=== PATIENT | female | born 1990 | race African-American/Black ===

== ENCOUNTER 2019-01-23 09:57 | Outpatient (CLI) | payer OTHER ==
[2019-01-23 11:29] VITALS: BP 137/97
--- NOTE | 2019-01-23 11:29 | SLEEP CARE CONSULTATION ---
Information from patient questionnaire entered by Mine Barbosa. I have reviewed and concur with the information entered by Mine Barbosa. This document represents the service I personally performed and the decisions made by me, Octavio Simmons MD, [facility]. History of Present Illness Reason for Visit: New patient Chief Complaint: reports: Other (always tired) Duration of Symptoms: 4-6 years Usual bedtime: 2483-2968 Time it takes to fall asleep: 5 minutes Snores at night: Yes (lightly per ) Observed to quit breathing while asleep: Yes Sleeps alone due to snoring: No Number of times waking at night: 5-6 Reasons for waking at night: reports: Gasping for air, Other (noises) Toss, Turn, or Twitch while sleeping: Yes Recalls having dreams: Yes Usually gets out of bed at: [id number] Feels refreshed in the morning: No Morning headache: No Sleepy or fatigued during the day: Yes Ever fallen asleep while driving: Yes (only while ) Takes day naps: No Dreams during day naps: Yes Prior sleep studies: No Additional HPI information: I had the pleasure of seeing Ms. Pederson today regarding the possibility of her having a sleep disorder. As you know, she is a 28 year old lady who complains of persistent fatigue for4 6 years. The patient tells me that she normally goes to bed around 8:30 - 10 pm, and it takes her approximately 5 - 15 minutes to fall asleep. She has been told that she snores lightly. She has also been observed to stop breathing in her sleep. Her spouse can still sleep in the same bed. He uses a CPAP. She can recall waking up on the average of 5 - 6 times during the night. Most of the time she wakes up because of noises and gasping for air. There is a lot of tossing and turning in her sleep. No somniloquy (sleep talking) or somnambulism (sleep walking). Generally she can recall having dreams. In the morning she usually gets up out of the bed around 4:30 - 5 a.m. not feeling refreshed nor rested. She usually does not have a morning headache. During the day she complains of feeling sleepy and fatigued. Her score on [place] Sleepiness Scale is 10 out of 24. She has fallen asleep while driving and has gone out of the ervin. She usually does not take naps during the day. Upon falling asleep during the day she reports having dreams. She has never had sleep paralysis, experienced cataplexy or symptoms of restless leg syndrome. She reports having impaired concentration during the day. 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 Patient is and lives in [place]. Have you smoked in the past 12 months: Yes (less than 1 pack) Years of smokin Quit date: cut back 09/2018 Alcohol use: Yes Alcohol amount and frequency: 2 drinks/week Caffeine use: Yes Caffeine amount and frequency: 1 cup, 3-4 times/week Allergies and Home Medications Drug allergies reviewed: Yes Home medication list reviewed: Yes Allergy and home medication list: Meds: buspirone Review of Systems Weight gain over past 5 years: 15 Cardiovascular: reports: palpitations Gastrointestinal: reports: heartburn, abdominal pain Neurological: denies: headaches, seizure, head trauma, disorientation, speech dysfunction, gait or balance problems, fainting or unconsciousness, other Psychiatric: reports: anxiety Ear/Nose/Throat: reports: wisdom teeth removed Endocrine: reports: unexplained weakness Musculoskeletal: reports: back pain Immunologic: denies: sneezing, rash, itching, allergies to food or environment, other Physical Exam Vital signs obtained and entered by: Dr. Simmons Blood Pressure: 137/97 Cuff size: regular Heart Rate: 71 O2 Saturation: 99 Height: 5 ft 6 in Weight: 155 lb Body Mass Index: 25.0 BMI Classification: Overweight Neck circumference: 14.5 Mood/affect: normal HEENT: No craniofacial malformation Nostrils: patent to airflow Turbinates: normal Septum: midline Mouth and throat: narrow oropharynx Soft palate: long Hard palate: normal Uvula: normal Uvula visualization: 50% Mallampati Class II Tongue: normal in size Tonsils: small Chin and jaw: normal size and position Neck: normal w/o lymphadenopathy or thyromegaly Heart: regular rate and rhythm Lungs: clear bilaterally Abdomen: soft, non-tender Extremities: no edema or clubbing Neurologic: intact, no focal deficits Impression and Plan IMPRESSION: 1. Obstructive Sleep Apnea-Hypopnea Syndrome, as suggested by history of snoring, observed cessation of breath while asleep, frequent awakenings during the night, nocturnal choking, unrefreshed sleep, cognitive impairment, and daytime hypersomnolence. Narrow oropharynx is a common predisposing factor for obstructive sleep apnea-hypopnea syndrome. Pathophysiology of sleep-disordered breathing was discussed. I recommend proceeding to polysomnography to confirm the diagnosis and to assess severity. If she has significant sleep disordered breathing, a manual CPAP titration study will also be performed to find the optimal treatment pressure. I informed the patient of what the sleep studies involve and after some discussion, she agreed to proceed. Plan: 1. Schedule polysomnography and return in 1 to 2 weeks after the study to discuss result and initiate therapy. 2. Avoid long distance driving or when feeling sleepy. 3. Avoid alcohol, sedative and muscle relaxant around bedtime. I spent 100% of this 20 minute visit face to face with the patient with greater than 50% of this was spent time counseling the patient and coordination of care.
== END 2019-01-23 09:58 ==
LOC: SC 09:57
PROVIDERS: ATTEND Internal Medicine Pulmonary Disease
DX: R06.83 Snoring (principal); R06.81 Apnea, not elsewhere classified; G47.8 Other sleep disorders; R41.89 Other symptoms and signs involving cognitive functions and awareness; G47.10 Hypersomnia, unspecified; R53.83 Other fatigue
CPT/HCPCS: 99203; 99212

== ENCOUNTER 2019-03-01 20:31 | Outpatient (CLI) | payer OTHER | END 2019-03-01 20:32 | disposition home or self-care (01) | LOC: SC 20:31 | PROVIDERS: ATTEND Internal Medicine Pulmonary Disease | DX: R06.83 Snoring (principal); R06.81 Apnea, not elsewhere classified; G47.10 Hypersomnia, unspecified | CPT/HCPCS: 95810 ==

== ENCOUNTER 2019-03-20 10:27 | Outpatient (CLI) | payer OTHER ==
[2019-03-20 11:05] VITALS: BP 112/70
--- NOTE | 2019-03-20 11:05 | SLEEP CARE CONSULTATION ---
Information from patient questionnaire entered by Mine Barbosa. I have reviewed and concur with the information entered by Mine Barbosa. This document represents the service I personally performed and the decisions made by me, Awilda Marie RN, MSN, [facility]. History of Present Illness Initial [place] Sleepiness Scale score: 10 Current [place] Sleepiness Scale score: 10 Additional HPI information: JAYME GONZALEZ returns for follow up of the recently performed polysomnography. The patient was informed of the following polysomnography findings. I explained the pathophysiology behind obstructive sleep apnea. Patient does not have sleep apnea and was advised how weight gain could increase the risk of developing sleep apnea in the future. I strongly encouraged the patient to lose some weight. Patient has light snoring. Snoring can be reduced by weight loss. 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 Weight loss is best achieved with diet consult. Patient instructed to contact PCP for referral. Snoring can also be treated with an oral appliance from a dentist. Advised to check insurance coverage. She is not interested in oral appliance. In addition, an ENT evaluation can be do to see if other treatment is indicated. Patient counseled not drink alcohol less than 4 hours before bedtime as it can increase snoring and apnea. Patient was cautioned about risks of drowsy driving until sleepiness symptoms resolve. Patient denies drowsy driving. [facility] patient education on snoring and sleep apnea given and reviewed. Sleep Study - Results Polysomnography/Home Sleep Study results: The quality of the study is good. The patient had normal sleep efficiency. The sleep architecture was normal as well. Respiratory monitoring showed no significant sleep disordered breathing (AHI = 0.5) or hypoxia (robert oxygen saturation of 95%). The patient slept adequately in supine position (supine AHI = 1.0; nonsupine = 0.00). Snore was light in intensity. There was no sign ificant periodic leg movement of sleep. Cardiac rhythm was normal sinus rhythm without significant arrhythmia. No abnormal behavior (parasomnia) observed during the night. Allergies and Home Medications Known drug allergies: No Home medication list reviewed: Yes (see changes) Allergy and home medication list: buspioron 10mg daily ibuprofen as needed Review of Systems Review of systems same as previous: Yes Physical Exam Blood Pressure: 112/70 Cuff size: long Heart Rate: 80 O2 Saturation: 98 Height: 5 ft 6 in Weight: 162 lb 12.8 oz Body Mass Index: 26.2 BMI Classification: Overweight Impression and Plan Snoring but no significant sleep disordered breathing. Patient advised that often weight loss will reduce snoring as well as apnea risk. An oral appliance can also be used for snoring. This would require a dental consultation. Patient cautioned not to use other online appliances as can cause bite issues. A list of accredited dentists in area and one local dentist who makes oral appliances given. Patient is advised to check if insurance will cover. An ENT consult can also be helpful to determine if any other treatment is an option. Thus patient advised to lose alis 20 pounds she is considering as this would decrease her light snoring. In addition, she is advised to follow up with PCP for further evaluation of fatigue such as hypothyroidism, anemia etc. Patient wakes at regular time, gets at least 7-8hours of sleep and is still tired when awakens. * Follow up with PCP for further evaluation of fatigue such as hypothyroidism or anemia. * Attempt to lose some weight * Avoid alcohol consumption near bedtime * The patient is cautioned about driving until sleepiness is completely resolved. * Return as needed. Time Spent with Patient (minutes): 25 I spent 100% of this visit face to face with the patient with greater than 50% of this was spent time counseling the patient and coordination of care.
== END 2019-03-20 10:28 | disposition home or self-care (01) ==
LOC: SC 10:27
PROVIDERS: ATTEND Nurse Practitioner Family
DX: R06.83 Snoring (principal); E66.3 Overweight; Z68.26 Body mass index [BMI] 26.0-26.9, adult
CPT/HCPCS: 99212; 99214

== ENCOUNTER 2023-05-11 19:45 | Emergency (ER) | payer OTHER ==
--- NOTE | 2023-05-11 20:13 | ED Physician Documentation ---
PD HPI DYSPNEA - Stated complaint Stated Complaint: SOA/MUSCLE PX - Chief complaint Chief Complaint: Resp - History obtained from History obtained from: Patient - Additional information Additional information: 33-year-old woman with history of tobacco use but otherwise healthy with no possibility of went to bed last night feeling pretty good but overnight she developed productive cough and shortness of breath which was worse over the day today. Its associate with bodyaches. There is no chest pain, no pedal edema or calf pain but her legs are sore. No recent travel of significance and no sick contacts. PD PAST MEDICAL HISTORY - Present Medications Home Medications: Ambulatory Orders Medication Instructions Recorded Confirmed Albuterol Sulf [Ventolin Hfa 1 - 2 puffs INH Q4HR PRN #1 each 05/11/23 Inhaler] Benzonatate [Tessalon] 200 mg PO TID PRN #20 cap 05/11/23 predniSONE [Deltasone] 60 mg PO DAILY 5 Days #15 tablet 05/11/23 - Allergies Allergies/Adverse Reactions: Allergies Allergy/AdvReac Type Severity Reaction Status Date / Time No Known Drug Allergies Allergy Verified 05/11/23 20:02 PD ED PE NORMAL - Vitals Vital signs reviewed: Yes - General General: Alert and oriented X 3, Other (Tachycardic with slight tachypnea but speaking in full sentences.) - HEENT HEENT: Pharynx benign - Neck Neck: Supple, no meningeal sign, No bony TTP - Cardiac Cardiac: RRR, No murmur - Respiratory Respiratory: No respiratory distress, Other (Diffusely wheezy throughout without focal findings but also diminished throughout.) - Abdomen Abdomen: Non tender - Extremities Extremities: No edema, No calf tenderness / cord - Neuro Neuro: Alert and oriented X 3, Normal speech Results - Vitals Vitals: Vital Signs - 24 hr 05/11/23 05/11/23 05/11/23 19:52 20:25 21:47 Temperature 37.5 C Heart Rate 128 H 135 H 112 H Respiratory 19 24 16 Rate Blood Pressure 172/112 H 149/92 H O2 Saturation 97 98 Oxygen O2 Source Room air - Labs Labs: Laboratory Tests 05/11/23 05/11/23 05/11/23 19:58 20:33 20:33 WBC 6.9 RBC 4.88 Hgb 13.0 Hct 40.4 MCV 82.8 MCH 26.6 L MCHC 32.2 RDW 15.7 H Plt Count 283 MPV 10.1 Neut # (Auto) 5.7 Lymph # (Auto) 0.5 L [place] # (Auto) 0.6 Eos # (Auto) 0.1 Baso # (Auto) 0.0 Absolute Nucleated RBC 0.00 Nucleated RBC % 0.0 Sodium 135 Potassium 3.7 Chloride 105 Carbon Dioxide 20 L Anion Gap 10.0 BUN 7 Creatinine 0.8 Estimated GFR (MDRD) 100 Glucose 108 H Calcium 9.5 Total Bilirubin 0.4 AST 16 ALT 15 Alkaline Phosphatase 44 Total Protein 7.6 Albumin 4.4 Globulin 3.2 Albumin/Globulin Ratio 1.4 Nasal Adenovirus (PCR) NOT DETECTED Nasal B. parapertussis DNA (PCR) NOT DETECTED Nasal Coronavir 229E PCR NOT DETECTED Nasal Coronavir HKU1 PCR NOT DETECTED Nasal Coronavir NL63 PCR NOT DETECTED Nasal Coronavir OC43 PCR NOT DETECTED Nasal Enterovir/Rhinovir PCR NOT DETECTED Nasal Influenza B PCR NOT DETECTED Nasal Influenza A PCR NOT DETECTED Nasal Parainfluen 1 PCR NOT DETECTED Nasal Parainfluen 2 PCR NOT DETECTED Nasal Parainfluen 3 PCR NOT DETECTED Nasal Parainfluen 4 PCR NOT DETECTED Nasal RSV (PCR) NOT DETECTED Nasal B.pertussis DNA PCR NOT DETECTED Nasal C.pneumoniae (PCR) NOT DETECTED Harvinder Human Metapneumo PCR NOT DETECTED Nasal M.pneumoniae (PCR) NOT DETECTED Nasal SARS-CoV-2 (PCR) NOT DETECTED - Rads (name of study) Single view chest x-ray is unremarkable Relevant Findings:: Final report received, EMP independent interpretation of test PD Medical Decision Making - ED course ED course: 33-year-old woman presents with acute viral syndrome with prominent chest symptoms and a lot of wheezing. Workup in the emergency department demonstrates a CBC with lymphopenia consistent with a viral syndrome, unremarkable CMP, and negative [employer] respiratory panel. After the administration of IV dexamethasone and DuoNeb nebulizer she was feeling much better. Only mild wheezes on reexamination and nonlabored. Departure - Departure Disposition: 01 Home, Self Care Clinical Impression: Viral syndrome RAD (reactive airway disease) Qualifiers: Asthma severity: unspecified severity Asthma persistence: unspecified Asthma complication type: with acute exacerbation Qualified Code(s): J45.901 - Unspecified asthma with (acute) exacerbation Condition: Good Record reviewed to determine appropriate education?: Yes Instructions: ED Viral Syndrome Prescriptions: Albuterol Sulf [Ventolin Hfa Inhaler] 1 - 2 puffs INH Q4HR PRN #1 each PRN Reason: Shortness Of Air/Wheezing predniSONE [Deltasone] 60 mg PO DAILY 5 Days #15 tablet Benzonatate [Tessalon] 200 mg PO TID PRN #20 cap PRN Reason: Cough Comments: You are seen today for a viral syndrome/flulike illness that seem to have gone to your chest with wheezing. The actual flu test itself was negative but there are other similar viruses that can cause a similar syndrome. Take it easy for the next couple of days and drink plenty of fluids. You can take DayQuil/NyQuil for your symptoms and I am also prescribing something for the cough, an inhaler, and steroids. Return for new or worsening symptoms. Follow-up with your doctor early next week for recheck. Forms: PCP List Discharge Date/Time: 05/11/23 21:48
[2023-05-11] MEDS: IPRATROPIUM/ALBUTEROL 3 ML NEB INH STA (20:25)
[2023-05-11] MEDS: SODIUM CHLORIDE 0.9% 1,000 ML IV STA (20:31)
[2023-05-11] MEDS: DEXAMETHASONE 10 MG/ML VIAL IVP STA (20:32)
[2023-05-11] MEDS: KETOROLAC 15 MG/ML VIAL IVP STA (20:33)
[2023-05-11 20:37] LABS: BASOPHILS % (AUTO) 0.4 %; EOSINOPHILS # (AUTO) 0.1 10^3/uL (0.0-0.7); HCT - HEMATOCRIT 40.4 % (37.0-47.0); LYMPHOCYTES # (AUTO) 0.5 10^3/uL (1.5-3.5); LYMPHOCYTES % (AUTO) 7.4 %; MEAN CORPUSCULAR HEMOGLOBIN 26.6 pg (27.0-31.0); MEAN CORPUSCULAR HGB CONC 32.2 g/dL (32.0-36.0); MEAN CORPUSCULAR VOLUME 82.8 fL (81.0-99.0); MEAN PLATELET VOLUME 10.1 fL (7.9-10.8); MONOCYTES # (AUTO) 0.6 10^3/uL (0.0-1.0); MONOCYTES % (AUTO) 8.4 %; NEUTROPHILS # (AUTO) 5.7 10^3/uL (1.5-6.6); NEUTROPHILS % (AUTO) 82.5 %; PLT - PLATELET COUNT 283 10^3/uL (130-450); RED BLOOD COUNT 4.88 10^6/uL (4.20-5.40); RED CELL DISTRIBUTION WIDTH 15.7 % (12.0-15.0); WHITE BLOOD COUNT 6.9 x10^3/uL (4.8-10.8)
[2023-05-11 20:54] LABS: ALBUMIN 4.4 g/dL (3.2-5.5); ALBUMIN/GLOBULIN RATIO 1.4 (1.0-2.2); BILIRUBIN,TOTAL 0.4 mg/dL (0.2-1.0); CALCIUM 9.5 mg/dL (8.5-10.3); CREATININE 0.8 mg/dL (0.6-1.3); POTASSIUM 3.7 mmol/L (3.5-4.5); TOTAL PROTEIN 7.6 g/dL (6.4-8.9)
[2023-05-11 20:58] LABS: CORONAVIRUS 229E-RESP PCR NOT DETECTED; CORONAVIRUS HKU1-RESP PCR NOT DETECTED; CORONAVIRUS NL63-RESP PCR NOT DETECTED; CORONAVIRUS OC43-RESP PCR NOT DETECTED; HUMAN METAPNEUMOVIRUS NOT DETECTED; INFLUENZA A- RESP PCR PANEL NOT DETECTED; RHINOVIRUS/ENTEROVIRUS NOT DETECTED; SARS-CoV-2 -RESP PCR PANEL NOT DETECTED
[2023-05-11 20:59] LABS: B. PARAPERTUSSIS- RESP PCR PAN NOT DETECTED; B. PERTUSSIS- RESP PCR PANEL NOT DETECTED; C. PNEUMONIAE- RESP PCR PANEL NOT DETECTED; INFLUENZA B - RESP PCR PANEL NOT DETECTED; M. PNEUMONIAE- RESP PCR PANEL NOT DETECTED; PARAINFLUENZA VIRUS 1 NOT DETECTED; PARAINFLUENZA VIRUS 2 NOT DETECTED; PARAINFLUENZA VIRUS 3 NOT DETECTED; PARAINFLUENZA VIRUS 4 NOT DETECTED; RSV- RESP PCR PANEL NOT DETECTED
--- NOTE | 2023-05-11 21:21 | XRAY Report ---
PROCEDURE: Chest 1V INDICATIONS: dyspnea TECHNIQUE: One view of the chest was acquired. COMPARISON: None. FINDINGS: Surgical changes and devices: None. Lungs and pleura: No pleural effusions or pneumothorax. Lungs are clear. Mediastinum: Mediastinal contours appear normal. Heart size is normal. Bones and chest wall: No suspicious bony lesions. Overlying soft tissues appear unremarkable. IMPRESSION: No acute cardiopulmonary process. Reviewed by: Patrizia Key MD on 05/11/2023 9:20 PM PDT Approved by: Patrizia Key MD on 05/11/2023 9:20 PM PDT Station ID: [id number]
[2023-05-11 21:48] VITALS: BP 149/92; O2SAT 98
== END 2023-05-11 21:48 | disposition home or self-care (01) ==
LOC: ED 19:45
DX: B34.9 Viral infection, unspecified (principal); J45.901 Unspecified asthma with (acute) exacerbation; Z11.52 Encounter for screening for COVID-19
CPT/HCPCS: 36415; 80053; 85025; 87633; 94640; 94664; 96374; 96375; 99284

== ENCOUNTER 2023-05-11 23:43 | Emergency (ER) | payer OTHER ==
--- NOTE | 2023-05-12 00:03 | ED Physician Documentation ---
History of Present Illness - Stated complaint Stated Complaint: SOA - Chief complaint Chief Complaint: Resp - History obtained from History obtained from: Patient - Additonal information Additional information: 33yF with pmh htn being managed nonmedically p/w soa and wheezing at home shortly after being discharged from ER today s/p breathing treatments and steroids. she was unable to fill her prescriptions yet since it's nighttime so came back here. PERC negative. PD PAST MEDICAL HISTORY - Past Medical History Past Medical History: Yes Cardiovascular: Hypertension - Past Surgical History Past Surgical History: No - Present Medications Home Medications: Ambulatory Orders Medication Instructions Recorded Confirmed Albuterol Sulf [Ventolin Hfa 1 - 2 puffs INH Q4HR PRN #1 each 05/11/23 Inhaler] Benzonatate [Tessalon] 200 mg PO TID PRN #20 cap 05/11/23 predniSONE [Deltasone] 60 mg PO DAILY 5 Days #15 tablet 05/11/23 - Allergies Allergies/Adverse Reactions: Allergies Allergy/AdvReac Type Severity Reaction Status Date / Time No Known Drug Allergies Allergy Verified 05/11/23 23:54 - Social History Does the pt smoke?: Yes Smoking Status: Current every day smoker Does the pt drink ETOH?: Yes - POLST Patient has POLST: No PD ED PE NORMAL - Vitals Vital signs reviewed: Yes - General General: Alert and oriented X 3, No acute distress, Well developed/nourished - HEENT HEENT: Atraumatic, PERRL, EOMI - Neck Neck: Supple, no meningeal sign - Cardiac Cardiac: RRR - Respiratory Respiratory: No respiratory distress, Other (end expiratory wheezing bilaterally) - Abdomen Abdomen: Non tender, Non distended Results - Vitals Vitals: Vital Signs - 24 hr 05/11/23 05/12/23 23:45 00:05 Temperature 36.9 C Heart Rate 114 H 106 H Respiratory 24 24 Rate Blood Pressure 158/90 H O2 Saturation 97 Oxygen O2 Source Room air PD Medical Decision Making - ED course ED course: 33yF with recent ED visit earlier today s/p breathing treatments and steroids p/w BL wheezing, recurrent at home when she tried to go to bed tonight. well appearing with benign exam with exception of end expiratory wheezing. neb X 3 ordered with improvement as well as HFA inhaler to take home. ativan anxiolysis provided with improvement. return precautions given. f/u pcp. Departure - Departure Disposition: Home, Self Care Clinical Impression: Wheezing, Reactive airway disease Condition: Stable Instructions: ED Viral Syndrome Comments: You were seen in the emergency department for shortness of breath due to wheezing. Please follow-up with your primary care provider and return to the emergency department if you have any new or worsening symptoms or other concerns. Forms: PCP List
[2023-05-12] MEDS: IPRATROPIUM/ALBUTEROL 3 ML NEB INH STA (00:05)
[2023-05-12] MEDS: LORazepam 0.5 MG TABLET PO STA (00:22)
[2023-05-12] MEDS: ALBUTEROL NEB 2.5 MG/3 ML INH STA (00:25)
[2023-05-12] MEDS: ALBUTEROL 1 PUFF INH STA (00:33)
[2023-05-12 01:40] VITALS: BP 153/92; O2SAT 95
== END 2023-05-12 01:30 | disposition home or self-care (01) ==
LOC: ED 23:43
DX: J45.901 Unspecified asthma with (acute) exacerbation (principal); B34.9 Viral infection, unspecified; F17.200 Nicotine dependence, unspecified, uncomplicated; Z11.52 Encounter for screening for COVID-19
CPT/HCPCS: 36415; 71045; 80053; 85025; 87633; 94640; 94664; 96374; 96375; 99284; A9270

== ENCOUNTER 2023-09-06 11:15 | Outpatient (CLI) | payer OTHER ==
[2023-09-06 21:45] LABS: BACTERIAL VAGINOSIS DNA POSITIVE (NEGATIVE); CANDIDA GLABRATA DNA NEGATIVE (NEGATIVE); CANDIDA GROUP DNA NEGATIVE (NEGATIVE); CANDIDA KRUSEI DNA NEGATIVE (NEGATIVE); TRICHOMONAS VAGINALIS DNA NEGATIVE (NEGATIVE)
[2023-09-06 22:51] LABS: CHLAMYDIA TRACHOMATIS DNA NEGATIVE (NEGATIVE); NEISSERIA GONORRHOEAE DNA NEGATIVE (NEGATIVE)
[2023-09-07 04:09] LABS: HIV SCREEN 4TH GENERATION Non Reactive (Non Reactive)
[2023-09-07 07:11] LABS: HSV 1 IGG TYPE SPEC <0.91 index (0.00-0.90); HSV 2 IGG TYPE SPEC >23.60 index (0.00-0.90)
[2023-09-07 08:15] LABS: RPR Non Reactive (Non Reactive)
[2023-09-08 00:08] LABS: HCV AB Non Reactive (Non Reactive)
== END 2023-09-06 11:30 | disposition home or self-care (01) ==
LOC: LAB.N 11:15
PROVIDERS: ATTEND Physician Assistant Medical
DX: Z11.3 Encounter for screening for infections with a predominantly sexual mode of transmission (principal)
CPT/HCPCS: 36415; 81514; 86592; 86695; 86696; 86803; 87389; 87491; 87591; 87661